=== PATIENT | female | born 1965 | race Caucasian/White ===

== ENCOUNTER 2022-09-30 19:50 | Emergency (ER) | payer SELFPAY ==
[2022-09-30] VITALS (9 sets, daily range): BP systolic 162–184; BP diastolic 90–142; PULSE 96–115; RESP 40; TEMP 37.2; O2SAT 75–100
--- NOTE | 2022-09-30 19:51 | ED.NURSE ---
Pt arrives in wheelchair, audibly wheezing, visibly increased WOB, tachypneic. Placed in room, supplemental O2 prepared. requested to room. Michelleb started.
--- NOTE | 2022-09-30 19:53 | ED_ITS ---
HPI - General Adult General Time Seen by Provider: 19:53 Date Seen: 09/30/22 Chief complaint: Shortness of Breath/Dyspnea Stated complaint: shortness of breath Time Seen by Provider: 09/30/22 19:53 Source: patient and RN notes reviewed Mode of arrival: ambulatory Limitations: physical limitation (asthma attack, difficulty breathing) History of Present Illness HPI narrative: Patient is a 57-year-old female coming in with asthma exacerbation complaining she cannot breathe. She was pulling weeds yesterday, admits she started having some symptoms yesterday. Today it progressed. She called to get a refill on her prednisone but states her clinic would not do so. She states she rarely has exacerbations this bad. She is trying to quit smoking. She took an albuterol inhaler just prior to arrival. Does have a history of some allergic issues with her asthma. She has not been sick with anything, no cough or cold, no fevers, no cold symptoms. She is having significant difficulty breathing and nursing staff asked her to be seen on arrival which is done. They do relay that they do not have insurance, would like to keep the cost minimal if possible. She does not want a chest x-ray, does not believe it is necessary. She is adamant she has not been sick with anything. Related Data Home Medications Medication Instructions Recorded Confirmed ipratropium 0.5 mg-albuterol 3 mg 3 ml inhalation BID 10/02/21 07/23/22 (2.5 mg base)/3 mL nebulization soln sumatriptan succinate 50 mg tablet 50 mg PO PRN 10/02/21 07/23/22 albuterol sulfate 90 mcg/actuation 2 puff inhalation DAILY PRN 12/08/21 07/23/22 aerosol inhaler shortness of breath or wheezing Previous Rx's Medication Instructions Recorded dextroamphetamine-amphetamine 30 30 mg PO BID #60 tabs 07/23/22 mg tablet (Adderall) dextroamphetamine-amphetamine 30 30 mg PO BID #60 tabs 07/23/22 mg tablet (Adderall) dextroamphetamine-amphetamine 30 30 mg PO BID #60 tabs 07/23/22 mg tablet (Adderall) lisinopril 20 2 tab PO QDAY #60 tabs 07/23/22 mg-hydrochlorothiazide 12.5 mg tablet metoprolol tartrate 50 mg tablet 50 mg PO BID #60 tabs 07/23/22 Allergies Allergy/AdvReac Type Severity Reaction Status Date / Time amoxicillin Allergy Intermediate red spots Verified 07/23/22 14:05 and swelling atomoxetine Allergy Intermediate Nausea Verified 07/23/22 14:05 lisdexamfetamine Allergy Intermediate Nausea Verified 07/23/22 14:05 Review of Systems Status of ROS: Reports: 6 or more systems reviewed and unremarkable except as noted in History and below PFSH PFS Medical History Recurrent major depressive disorder ?F33.9 - Major depressive disorder, recurrent, unspecified (ICD-10) Primary hypertension ?I10 - Essential (primary) hypertension (ICD-10) Posttraumatic stress disorder ?F43.10 - Post-traumatic stress disorder, unspecified (ICD-10) Moderate persistent asthma ?J45.40 - Moderate persistent asthma, uncomplicated (ICD-10) Generalized anxiety disorder ?F41.1 - Generalized anxiety disorder (ICD-10) Chronic migraine without aura ?G43.709 - Chronic migraine without aura, not intractable, without status migrainosus (ICD-10) Attention deficit hyperactivity disorder (ADHD), combined type ?F90.2 - Attention-deficit hyperactivity disorder, combined type (ICD-10) Allergic rhinitis ?J30.9 - Allergic rhinitis, unspecified (ICD-10) Surgical History History of hernia repair (07/2012) ?Z98.890 - Other specified postprocedural states (ICD-10) ?Z87.19 - Personal history of other diseases of the digestive system (ICD-10) History of bilateral ligation of fallopian tubes ?Z98.51 - Tubal ligation status (ICD-10) Family History Mother Type 2 diabetes mellitus High blood pressure Social History Narrative: . 4 children. Unemployed. Smoker. Social EtOH. Smoking Status: Current every day smoker What tobacco products do you use: cigarettes Do you use any of these nicotine containing products: None Second hand tobacco smoke exposure: No How often do you have a drink containing alcohol: monthly or less How many standard drinks containing alcohol do you have on a typical day: 1 or 2 How often do you have six or more drinks on one occasion: Never AUDIT-C Alcohol total score: 1 Non-prescribed substance use: denies use Little interest or pleasure in doing things: several days Feeling down, depressed, or hopeless: not at all service: No Exam Narrative: Exam Narrative: Patient sitting up, almost tripod position, accessory muscle use in paradoxical abdominal movement noted. Is able to talk but very briefly, is tachypneic. Initial O2 sats were 70% but patient seems to be peripherally clamped down as well. DuoNeb was initiated immediately, patient placed on pulse oximetry, nursing staff looking for an IV site. Do not really hear much air exchange at all, very prolonged expiratory phase with minimal lung sounds heard. She is still alert, sclera clear, conjugate gaze. I hear no murmur. She has no cervical adenopathy, no thyromegaly masses or nodules. Skin is sanders, no rash noted. No lower extremity edema noted. With the initial DuoNeb, O2 sats are in the upper 90s. After the 1st DuoNeb is done, she is 100%, lung sounds are improved. She now has wheezing throughout, prolonged expiratory phase. There is much better air movement, she is feeling better. Subsequent DuoNeb is init iated. She is given 10 mg IV dexamethasone, have ordered 2 g IV magnesium. We will give her 250 normal saline bolus. Per her request I have canceled labs and chest x-ray at this time. She does seem to be a reliable historian and there certainly seems to be a possible environmental trigger with someone who has known environmental allergies with asthma. Const: Vital Signs, click to edit/add: Vital Signs - 24 hr 09/30/22 19:50 09/30/22 20:09 09/30/22 20:10 Temperature 98.9 F Pulse Rate 104 H Pulse Rate [Pulse Oximeter] 115 H Respiratory Rate 40 H Blood Pressure 184/142 H Blood Pressure [Le ft Upper Arm] 179/129 H Pulse Oximetry 75 L 100 91 Oxygen Delivery Me thod Room Air OxyMask OxyMask Oxygen Flow Rate 2 2 09/30/22 20:15 09/30/22 20:18 09/30/22 20:19 Temperature Pulse Rate 103 H 100 100 Pulse Rate [Pulse Oximeter] Respiratory Rate Blood Pressure 179/129 H Blood Pressure [Le ft Upper Arm] Pulse Oximetry 95 91 90 Oxygen Delivery Me thod OxyMask OxyMask Oxygen Flow Rate 2 2 09/30/22 20:30 09/30/22 20:31 09/30/22 20:45 Temperature Pulse Rate 96 96 98 Pulse Rate [Pulse Oximeter] Respiratory Rate Blood Pressure 162/90 H Blood Pressure [Le ft Upper Arm] Pulse Oximetry 91 94 93 Oxygen Delivery Me thod Oxygen Flow Rate Documenting provider has reviewed patient's vital signs: yes Course Reevaluation(s) Time of Reevaluation #1: 21:00 Reevaluation #1: Patient is requesting to go. She states she is back to near her baseline. Pulse oximetry is about 90%, occasionally dips to 89%. She is requesting to leave does not want to stay longer. She will get a prescription for prednisone from [facility], does state that she has inhalers at home to use. Have cautioned her that I think she should probably remain a bit longer but she is adamant she wants to leave. She does tell me she will return if she worsens. Lung sounds are mildly distant, continue prolonged expiratory phase but no longer any wheezing. Vital Signs Vital signs: Initial Vital Signs Temperature 98.9 F 09/30/22 19:50 Temperature Source Temporal Artery Scan 09/30/22 19:50 Pulse Rate 115 H 09/30/22 19:50 Respiratory Rate 40 H 09/30/22 19:50 Blood Pressure 179/129 H 09/30/22 19:50 Blood Pressure Mean 145 H 09/30/22 19:50 Blood Pressure Position Sitting 09/30/22 19:50 Pulse Oximetry 75 L 09/30/22 19:50 Oxygen Delivery Method Room Air 09/30/22 19:50 Vital Signs Temperature 98.9 F 09/30/22 19:50 Pulse Rate 115 H 09/30/22 19:50 Respiratory Rate 40 H 09/30/22 19:50 Blood Pressure 179/129 H 09/30/22 19:50 Pulse Oximetry 75 L 09/30/22 19:50 Oxygen Delivery Method Room Air 09/30/22 19:50 Temperature 98.9 F 09/30/22 19:50 Pulse Rate 98 09/30/22 20:45 Respiratory Rate 40 H 09/30/22 19:50 Blood Pressure 162/90 H 09/30/22 20:31 Pulse Oximetry 93 09/30/22 20:45 Oxygen Delivery Method OxyMask 09/30/22 20:18 Oxygen Flow Rate 2 09/30/22 20:18 Discharge Plan Discharge Clinical Impression: Asthma with acute exacerbation Patient Disposition: Home, Self-Care Condition: Improved Instructions: Asthma (ED) Additional Instructions: Start prednisone in the morning and take as prescribed. Recommend taking prednisone with food to protect her stomach. Stay on your asthma medications, use albuterol inhaler every 4 hours as needed for wheezing or difficulty breathing. If you are having any increase in difficulty breathing or worsening of your asthma, please return for further evaluation. Highly encourage you to continue to work on smoking cessation. Follow up with your primary care provider this week for recheck, recheck of your oxygenation. You should pr obably be on some type of maintenance medication for asthma. With her smoking history, pulmonary function tests should be considered to ensure that you are not developing component of COPD as well. Activity Level: Activity as Tolerated Prescriptions: No Action lisinopril-hydrochlorothiazide 20-12.5 mg tablet 2 tab PO QDAY Qty: 60 5RF metoprolol tartrate 50 mg tablet 50 mg PO BID Qty: 60 5RF dextroamphetamine-amphetamine [Adderall] 30 mg tablet 30 mg PO BID Qty: 60 0RF Rx Instructions: administer doses at least 4-6 hours apart dextroamphetamine-amphetamine [Adderall] 30 mg tablet 30 mg PO BID Qty: 60 0RF Rx Instructions: administer doses at least 4-6 hours apart dextroamphetamine-amphetamine [Adderall] 30 mg tablet 30 mg PO BID Qty: 60 0RF Rx Instructions: administer doses at least 4-6 hours apart sumatriptan succinate 50 mg tablet 50 mg PO PRN Patient Comments: TAKE 1 TABLET BY MOUTH EVERY 2 HOURS IF NEEDED FOR MIGRAINE. MAX DOSE: 200MG PER 24 HRS. ipratropium-albuterol 0.5 mg-3 mg(2.5 mg base)/3 mL solution for nebulization 3 ml inhalation BID Patient Comments: NEBULIZE CONTENTS OF 1 VIAL FOUR TIMES A DAY albuterol sulfate 90 mcg/actuation HFA aerosol inhaler 2 puff inhalation DAILY PRN (Reason: shortness of breath or wheezing) Patient Comments: INHALE 1-2 PUFFS BY MOUTH EVERY 4 HOURS IF NEEDED FOR SHORTNESS OF BREATH 1ST CHOICE. Follow Up/Referrals: Roscoe Leal MD [Primary Care Provider] - Stand Alone Forms: [employer] Info Instructions
[2022-09-30] MEDS: IPRAT-ALBUT 0.5-2.5 MG/3 ML NEB 1 NEB IH ×2 (19:55→20:05)
[2022-09-30] MEDS: dexAMETHasone 10 MG/ML inj IVP (20:05)
[2022-09-30] MEDS: MAGNESIUM IV 2 GM/50 ML PIGGYBACK IVPB (20:17)
[2022-09-30] MEDS: 0.9 % SODIUM CHLORIDE 250 ml 250 ML IV (20:17)
--- NOTE | 2022-09-30 20:25 | ED.NURSE ---
Pt on 2L O2 oxymask.
--- NOTE | 2022-09-30 20:38 | ED.NURSE ---
Pt requesting no xray at this time. States she does not have insurance. Pt reports breathing a little better after magnesium infusion and other IV medications. Pt appears to still have labored breathing. Dr. Antonio notified @ 2038.
--- NOTE | 2022-09-30 20:55 | ED.NURSE ---
Pt's came out of the room and reported pt would like to leave. Dr. Antonio notified @ 2054. removed pt's oxygen mask and sats are currrently 92% on room air.
== END 2022-09-30 21:16 | disposition home or self-care (01) ==
PROVIDERS: Emergency Provider Family Medicine; PCP Family Medicine
DX: J45.901 Unspecified asthma with (acute) exacerbation (principal)
CPT/HCPCS: 36415; 80048; 85025; 86140; 94640; 96365; 96375; 99284; J1100; J3475; J7050

== ENCOUNTER 2023-03-23 08:45 | Outpatient (CLI) | payer OTHER, SELFPAY ==
--- OUTSIDE RECORDS SUMMARY | 2023-04-15 11:32 | XMS_ITS | Clinical Summary ---
Author Name Unknown Organization [facility] Address [place], [place] [address] Care Team Providers Care Orthopedic Mechanic Name Role Phone Pcp, No Primary Care Provider Unavailabl e Allergies Active Allergy Reactions Criticality Noted Date Comments Amoxicillin Rash 03/19/2013 Medications Medication Sig Dispensed Refills Start Date End Date Status albuterol (PROVENTIL) 0.083 % neb solutionIndications: Unspecified asthma(493.90) INHALE CONTENTS OF 1 VIAL VIA NEBULIZER EVERY 6 HOURS NEEDED FOR WHEEZING 75 mL 2 03/14/2015 Active loratadine (CLARITIN) 10 mg tablet Take 10 mg by mouth once daily. 0 Active NebulizerIndications :Moderate persistent asthma without complication Nebulizer, disposable neb kit x 4, reuseable neb kit x 1, mask x 1, filters x 1. Freq of use: qd; Med: albuterol Length of need: 99 mo 1 Device 0 01/05/2016 Active atomoxetine (Strattera) 40 mg capsuleIndications:A ttention deficit hyperactivity disorder (ADHD), combined type Take 1 Capsule (40 mg) by mouth once daily. 90 Capsule 0 11/09/2020 Active Ventolin HFA 90 mcg/actuation inhalerIndications:M oderate persistent asthma without complication Inhale 2 Puffs by mouth every 4 hours if needed for Shortness of Breath 1st choice. 1 Each 0 04/27/2021 Active SUMAtriptan (IMITREX) 50 mg tabletIndications:Ch ronic migraine without aura without status migrainosus, not intractable TAKE 1 TABLET BY MOUTH EVERY 2 HOURS IF NEEDED FOR MIGRAINE. MAX DOSE: 200MG PER 24 HRS. 9 Tablet 7 10/19/2021 Active Advair Diskus 500-50 mcg/dose diskus inhalerIndications:M oderate persistent asthma without complication Inhale 1 Puff by mouth two times daily. 1 Each 0 05/21/2022 Active albuterol HFA (PRO-AIR; VENTOLIN; PROVENTIL) 90 mcg/actuation inhalerIndications:M oderate persistent asthma without complication INHALE 1-2 PUFFS BY MOUTH EVERY 4 HOURS IF NEEDED FOR SHORTNESS OF BREATH 1ST CHOICE. 18 g 12 10/02/2022 Active albuterol-ipratropiu m (DUONEB) (2.5-0.5 mg) in 3 mL NEBULIZATION solutionIndications: Exacerbation of asthma, unspecified asthma severity, unspecified whether persistent NEBULIZE CONTENTS OF 1 VIAL FOUR TIMES A DAY 180 mL 3 10/24/2022 Active predniSONE (DELTASONE) 10 mg tabletIndications:Mi ld intermittent asthma without complication TAKE 4 TABLETS BY MOUTH DAILY FOR 4 DAYS THEN 3 TABS FOR 3 DAYS THEN 2 TABS FOR 2 DAYS THEN 1 TAB FOR 1 DAY; TAKE WITH MEALS 30 Tablet 2 01/02/2023 Active Active Problems Problem Noted Date Diagnosed Date Chronic migraine without aur a without status migrainosus, not intractable 03/29/2015 Aortic insufficiency 12/23/2009 Overview: echo Unspecified asthma(493.90) Overview: Asthma Encounters Date Type Department Care Team Description 03/05/[address] [id number] Parker Andrea MD Refill Request (Prednisone) from Last 3 Months Immunizations Name Administration Dates Next Due Tdap 11/12/2013,07/14/2003 Family History Medical History Relation Name Comments Cancer Maternal Grandmother Arthritis Mother Diabetes Mother Heart Disease Mother Relation Name Status Comments Maternal Grandmother Mother Social History Tobacco Use Types Packs/Day Years Used Date Smoking Tobacco: Every Day Cigarettes Smokeless Tobacco: Never Tobacco Cessation:Ready to Q uit: No Comments:decreased smoking past 2 days due to SOB Alcohol Use Standard Drinks/Week Comments Yes 0 (1 standard drink = 0.6 oz pur e alcohol) 6 pack per week PHQ-2 Answer Date Recorded PHQ-2 TOTAL SCORE 3 02/09/2021 Social Connections Answer Date Recorded Frequency of Communication with Friends and Fami ly Not on file 03/15/2021 Financial Resource Strain Answer Date R ecorded Difficulty of Paying Living Expenses Not on file 03/15/2021 Difficulty of Paying Living Expenses Not on file 03/15/2021 Sex and Gender Information Value Date Recorded Sex Assigned at Not on file Gender Identity Not on file Sexual Orientation Not on file Obstetrics History Para Term AB IAB SAB Ectopic Multiple Livin g Live Births 4 4 4 0 0 0 0 0 4 Date Outcome GA Total Labor Labor/2nd/3rd Weight Sex Delivery Anes PTL Shalonda A1 A5 Name Cl in Term Term Term Term Last Filed Vital Signs Vital Sign Reading Time Taken Comments Blood Pressure 149/80 11/09/2020 1:56 PM CDT Pulse 97 11/09/2020 1:56 PM CDT Temperature 36.9 ??C (98.4 ??F) 09/02/2019 10:17 AM C DT Respiratory Rate 16 10/30/2016 8:25 AM CDT Oxygen Saturation 98% 11/09/2020 1:56 PM CDT Inhaled Oxygen Concentration - - Weight 59.4 kg (131 lb) 11/09/2020 1:56 PM CDT Height 151.8 cm (4' 11.76) 11/09/2020 1:56 PM C DT Body Mass Index 25.79 11/09/2020 1:56 PM CDT Plan of Treatment Health Maintenance Due Date Last Done Comments COVID-19 vaccine series (#1) 1967 HIV for age 15-65 1982 Hepatitis C screening for age 18-79 1985 Colonoscopy through age 75 02/19/2012 Mammogram for age 45-75 02/19/2012 12/19/2009 Pap test for age 21-65 01/16/2013 01/16/2010 Lipids for age 45-75 12/19/2014 12/19/2009 Zoster (shingles) series for age 50+ (1 of 2) 2017 BMI (ht and wt on same day) for age 18+ 11/09/2021 11/09/2020, 09/02/2019, 10/30/2016, Additional history exists Depression screening for age 12+ 02/09/2022 02/09/2021, 10/30/2016, 07/27/2015 Influenza for age 50-64 11/23/2022 Tetanus booster 11/13/2023 11/12/2013, 07/14/2003 Tdap Completed 11/12/2013, 07/14/2003 Pneumococcal series for age 6-64 Aged Out No longer eligible based on patient's age to complete this topic Care Teams Orthopedic Mechanic Relationship Specialty Start Date End Date Pcp, No . PCP - General 06/23/22
== END 2023-03-23 08:46 | disposition home or self-care (01) ==
LOC: AMB 04-15 11:30
PROVIDERS: PCP Family Medicine; Visit Provider Emergency Medicine